=== PATIENT | male | born 1945 | race Caucasian/White ===

== ENCOUNTER 2016-11-29 16:47 | Inpatient (IN) | payer OTHER, MEDICARE ==
[~2016-11-29] VITALS: Ht 177.8 cm; Wt 46.4 kg
[2016-11-29 17:41] LABS: HEMATOCRIT 48.5 % (42.0-52.0); HEMOGLOBIN 17.9 g/dl (13.5-18.0); MEAN CELL VOLUME 85 fl (80.0-100.0); MEAN CORPUSCULAR HEMOGLOBIN 32 pg (27.0-31.0); MEAN CORPUSCULAR HGB CONC 37 g/dl (33.0-37.0); MEAN PLATELET VOLUME 9.6 fl (7.4-10.4); PLATELET COUNT 313 K/mm3 (130-400); RED BLOOD COUNT 5.68 M/mm3 (4.20-5.60); REDCELL DISTRIBUTION WIDTH-CV 13.2 % (11.5-14.5); WHITE BLOOD COUNT 16.4 K/mm3 (4.8-10.8)
[2016-11-29 17:46] LABS: ADD PATHOLOGY DIFF REVIEW NO
[2016-11-29 17:50] LABS: ADJUSTED CALCIUM 9.4 mg/dL (8.4-10.2); ALBUMIN 5.6 gm/dL (3.5-5.0); BILIRUBIN,TOTAL 1.3 mg/dL (0.0-1.0); CALCIUM 10.7 mg/dL (8.4-10.2); CREATININE, serum 2.54 mg/dL (0.66-1.25); POTASSIUM 5.2 mmol/L (3.4-5.0); TOTAL PROTEIN 9.2 gm/dL (6.4-8.2)
[2016-11-29 18:29] LABS: ARTERIAL BLD GAS TCO2 CT 13.1; ARTERIAL BLOOD GAS BASE EXCESS -10.7 (-2-2); ARTERIAL BLOOD GAS HCO3 12.4 meq/L (22-26); ARTERIAL BLOOD GAS PHT 7.35 C (7.35-7.45); ARTERIAL BLOOD GAS PO2 67.2 mmHg (80-100); ARTERIAL BLOOD GAS PO2T 67.2 (80-100); ARTERIAL BLOOD GAS pH 7.35 (7.35-7.45); OXYHEMOGLOBIN 91.4 %
[2016-11-29 18:31] LABS: ALLEN TEST YES; ALLENS TEST RESULT PASS; ATS? YES
[2016-11-29 18:31] LABS: BAND 9 % (0-10); NEUTROPHILS 69 % (42.0-75.2); PLATELET ESTIMATE NORMAL (NORMAL); TOTAL CELLS COUNTED 100
[2016-11-29 21:22] VITALS: BP 126/78; PULSE 90; TEMP 98.5
[2016-11-29 21:45] LABS: MAGNESIUM 2.8 mg/dL (1.6-2.3)
[2016-11-29 23:05] LABS: TROPONIN-I 0.095 ng/mL (0.000-0.034)
[2016-11-30] VITALS (8 sets, daily range): BP systolic 96–147; BP diastolic 59–88; PULSE 72–98; TEMP 97.5–98.9
[2016-11-30 00:17] LABS: HYALINE CAST >12 /lpf; PH 5 (5-8); SQUAMOUS EPITHELIAL 0-2 /hpf; URINE APPEARANCE Hazy; URINE BACTERIA None Seen /hpf; URINE BILIRUBIN Negative (NEGATIVE); URINE BLOOD 1+ (NEGATIVE); URINE COLOR Yellow; URINE GLUCOSE Negative (NEGATIVE); URINE KETONE 1+ (NEGATIVE); URINE RBC 0-2 /hpf; URINE UROBILINOGEN Negative (NEGATIVE)
[2016-11-30 00:23] LABS: AMPHETAMINE URINE NEGATIVE; BARBITURATES URINE NEGATIVE; BENZODIAZEPINES URINE NEGATIVE; BUPRENORPHINE URINE NEGATIVE; METHADONE URINE NEGATIVE; OPIATES URINE NEGATIVE; OXYCODONE URINE NEGATIVE; PHENCYCLIDINE URINE NEGATIVE; PROPOXYPHENE URINE NEGATIVE; THC CANNABINOIDS URINE NEGATIVE
[2016-11-30 10:19] LABS: MEAN CELL VOLUME 87 fl (80.0-100.0); MEAN CORPUSCULAR HGB CONC 36 g/dl (33.0-37.0); MEAN PLATELET VOLUME 9.3 fl (7.4-10.4); PLATELET COUNT 217 K/mm3 (130-400); RED BLOOD COUNT 3.72 M/mm3 (4.20-5.60); REDCELL DISTRIBUTION WIDTH-CV 13.1 % (11.5-14.5); WHITE BLOOD COUNT 10.3 K/mm3 (4.8-10.8)
[2016-11-30 10:24] LABS: CREATININE, serum 1.12 mg/dL (0.66-1.25)
[2016-11-30 10:39] LABS: ADD PATHOLOGY DIFF REVIEW NO; HEMATOCRIT 32.3 % (42.0-52.0); HEMOGLOBIN 11.6 g/dl (13.5-18.0); MEAN CORPUSCULAR HEMOGLOBIN 31 pg (27.0-31.0)
[2016-11-30 11:36] LABS: BAND 20 % (0-10); EOSINOPHIL 1 % (0-4); METAMYELOCYTE 3 % (0-0); NEUTROPHILS 69 % (42.0-75.2); PLATELET ESTIMATE NORMAL (NORMAL); TOTAL CELLS COUNTED 100
[2016-12-01] VITALS (13 sets, daily range): BP systolic 91–114; BP diastolic 51–76; PULSE 36–108; TEMP 97.3–99.9
[2016-12-01 06:34] LABS: BASO # 0.1 (0.0-0.2); BASO % 0.5 % (0.0-2.0); EOS # 0.1 (0.0-0.7); EOS % 0.5 % (0-4.0); GRAN % 83.8 % (42.2-75.2); LYMPH # 0.9 (1.2-3.4); LYMPH % 6.9 % (20.0-51.0); MEAN CELL VOLUME 89 fl (80.0-100.0); MEAN CORPUSCULAR HGB CONC 35 g/dl (33.0-37.0); MEAN PLATELET VOLUME 9.6 fl (7.4-10.4); MONO % 7.8 % (1.7-9.3); PLATELET COUNT 217 K/mm3 (130-400); RED BLOOD COUNT 3.62 M/mm3 (4.20-5.60); REDCELL DISTRIBUTION WIDTH-CV 13.3 % (11.5-14.5); WHITE BLOOD COUNT 13.1 K/mm3 (4.8-10.8)
[2016-12-01 06:38] LABS: HEMATOCRIT 32.2 % (42.0-52.0); HEMOGLOBIN 11.4 g/dl (13.5-18.0); MEAN CORPUSCULAR HEMOGLOBIN 31 pg (27.0-31.0)
[2016-12-01 06:56] LABS: CALCIUM 8.1 mg/dL (8.4-10.2); CREATININE, serum 0.62 mg/dL (0.66-1.25); POTASSIUM 3.2 mmol/L (3.4-5.0)
[2016-12-02] VITALS (9 sets, daily range): BP systolic 95–126; BP diastolic 55–80; PULSE 56–82; TEMP 97.6–98.7
[2016-12-02 06:44] LABS: BASO # 0.1 (0.0-0.2); BASO % 0.6 % (0.0-2.0); EOS # 0.3 (0.0-0.7); EOS % 2.3 % (0-4.0); GRAN % 70.2 % (42.2-75.2); LYMPH # 1.9 (1.2-3.4); LYMPH % 16.5 % (20.0-51.0); MEAN CELL VOLUME 89 fl (80.0-100.0); MEAN CORPUSCULAR HGB CONC 35 g/dl (33.0-37.0); MEAN PLATELET VOLUME 10.2 fl (7.4-10.4); MONO # 1.1 (0.1-0.6); MONO % 9.9 % (1.7-9.3); PLATELET COUNT 226 K/mm3 (130-400); RED BLOOD COUNT 3.27 M/mm3 (4.20-5.60); REDCELL DISTRIBUTION WIDTH-CV 13.4 % (11.5-14.5); WHITE BLOOD COUNT 11.4 K/mm3 (4.8-10.8)
[2016-12-02 06:45] LABS: HEMATOCRIT 29.2 % (42.0-52.0); HEMOGLOBIN 10.2 g/dl (13.5-18.0); MEAN CORPUSCULAR HEMOGLOBIN 31 pg (27.0-31.0)
[2016-12-02 07:12] LABS: CALCIUM 8.1 mg/dL (8.4-10.2); CREATININE, serum 0.5 mg/dL (0.66-1.25); POTASSIUM 3.5 mmol/L (3.4-5.0)
[2016-12-02] MEDS ORDERED: IPRATROPIUM BROM3 M1 IH ×2 (14:11→14:14)
[2016-12-02] MEDS ORDERED: CELEXA 20MG20 MG/TAB PO (14:12)
[2016-12-02] MEDS ORDERED: SINGULAIR 110 MG/TAB PO (14:12)
[2016-12-02] MEDS ORDERED: ULTRAM 50MG TAB50 MG PO (14:12)
[2016-12-02] MEDS ORDERED: FOLIC ACID 11 MG/TA1 PO (14:15)
[2016-12-02] MEDS ORDERED: THIAMINE 1100 MG/TAB PO (14:15)
[2016-12-02] MEDS ORDERED: MULTI VITAMINS1 TAB PO (14:15)
[2016-12-02] MEDS ORDERED: NICODERM C21 MG/PATC TD (14:15)
[2016-12-02] MEDS ORDERED: UNIPHYL 400MG400 MG PO (14:15)
[2016-12-02] MEDS ORDERED: DEEP SEA 45 ML45 ML NS (14:16)
[2016-12-02] MEDS ORDERED: TYLENOL 325MG325 MG PO (14:16)
== END 2016-12-02 18:31 | DRG 922 ==
LOC: COL.ER 16:47 → MEDICAL 19:26
PROVIDERS: Emergency Medicine; Family Medicine
DX: T67.5XXA Heat exhaustion, unspecified, initial encounter (principal); I21.4 Non-ST elevation (NSTEMI) myocardial infarction; E87.1 Hypo-osmolality and hyponatremia; N17.9 Acute kidney failure, unspecified; E86.0 Dehydration; F17.210 Nicotine dependence, cigarettes, uncomplicated; E87.5 Hyperkalemia; E87.6 Hypokalemia; F10.10 Alcohol abuse, uncomplicated; N18.9 Chronic kidney disease, unspecified
CPT/HCPCS: 99232-AI; 99233-AI; 99239; G0378; J1644; J2543; J7030; J7040; J7050

== ENCOUNTER 2016-12-02 15:33 | Inpatient (IN) | payer MEDICARE ==
[~2016-12-02] VITALS: Ht 177.8 cm; Wt 51.3 kg
[~2016-12-02 15:33] MED LIST: CELEXA 20MG20 MG/TAB PO; DEEP SEA 45 ML45 ML NS; FOLIC ACID 11 MG/TA1 PO; IPRATROPIUM BROM3 M1 IH; MULTI VITAMINS1 TAB PO; NICODERM C21 MG/PATC TD; SINGULAIR 110 MG/TAB PO; THIAMINE 1100 MG/TAB PO; TYLENOL 325MG325 MG PO; ULTRAM 50MG TAB50 MG PO; UNIPHYL 400MG400 MG PO
[2016-12-02 18:24] VITALS: BP 125/78; PULSE 73; TEMP 97.5
[2016-12-03 05:05] VITALS: BP 116/69; PULSE 70; TEMP 98.4
[2016-12-03 18:55] VITALS: BP 115/67; PULSE 72; TEMP 97.9
[2016-12-04 04:19] VITALS: BP 122/64; PULSE 73; TEMP 98.1
[2016-12-04 17:06] VITALS: BP 133/83; PULSE 72; TEMP 97.7
[2016-12-05 05:59] VITALS: BP 133/79; PULSE 75; TEMP 98.2
[2016-12-05 06:55] LABS: BASO # 0.1 (0.0-0.2); BASO % 0.6 % (0.0-2.0); EOS # 0.2 (0.0-0.7); EOS % 2.1 % (0-4.0); GRAN # 6.8 (1.4-6.5); GRAN % 66.6 % (42.2-75.2); LYMPH % 19.8 % (20.0-51.0); MEAN CELL VOLUME 90 fl (80.0-100.0); MEAN CORPUSCULAR HGB CONC 34 g/dl (33.0-37.0); MONO % 9.8 % (1.7-9.3); PLATELET COUNT 336 K/mm3 (130-400); RED BLOOD COUNT 3.47 M/mm3 (4.20-5.60); REDCELL DISTRIBUTION WIDTH-CV 13.4 % (11.5-14.5); WHITE BLOOD COUNT 10.2 K/mm3 (4.8-10.8)
[2016-12-05 07:00] LABS: ANION GAP 4 mmol/L (7-16); BLOOD UREA NITROGEN 7 mg/dL (9-20); CALCIUM 8.3 mg/dL (8.4-10.2); CARBON DIOXIDE 29 mmol/L (22-30); CREATININE, serum 0.48 mg/dL (0.66-1.25); GLUCOSE 96 mg/dL (74-106); POTASSIUM 4.5 mmol/L (3.4-5.0)
[2016-12-05 07:01] LABS: HEMATOCRIT 31.3 % (42.0-52.0); HEMOGLOBIN 10.7 g/dl (13.5-18.0); MEAN CORPUSCULAR HEMOGLOBIN 31 pg (27.0-31.0)
[2016-12-05 07:11] LABS: SODIUM 119 mmol/L (137-145)
[2016-12-05 07:12] LABS: CHLORIDE 86 mmol/L (98-107)
[2016-12-05 08:12] LABS: THEOPHYLLINE < 1.0 ug/mL (10.0-20.0)
[2016-12-05 16:26] VITALS: BP 131/93; PULSE 72; TEMP 98.8
[2016-12-05 18:43] LABS: CALCIUM 8.1 mg/dL (8.4-10.2); CREATININE, serum 0.45 mg/dL (0.66-1.25); POTASSIUM 4.6 mmol/L (3.4-5.0)
[2016-12-06 05:47] VITALS: BP 157/97; PULSE 69; TEMP 97.4
[2016-12-06 06:18] LABS: CALCIUM 8.3 mg/dL (8.4-10.2); CREATININE, serum 0.46 mg/dL (0.66-1.25); MAGNESIUM 1.6 mg/dL (1.6-2.3)
[2016-12-06 16:28] VITALS: BP 134/80; PULSE 83; TEMP 98.5
[2016-12-07 06:39] VITALS: BP 131/71; PULSE 70; TEMP 98.5
[2016-12-07 16:53] VITALS: BP 132/75; PULSE 65; TEMP 98.9
[2016-12-08 04:14] VITALS: BP 167/85; BP 172/88; PULSE 76; TEMP 97.9
[2016-12-08 06:47] LABS: CALCIUM 8.9 mg/dL (8.4-10.2); CREATININE, serum 0.44 mg/dL (0.66-1.25); MAGNESIUM 1.5 mg/dL (1.6-2.3); POTASSIUM 4.5 mmol/L (3.4-5.0)
[2016-12-08 16:21] VITALS: BP 117/79; PULSE 64; TEMP 97.9
[2016-12-09 04:44] VITALS: BP 129/83; PULSE 73; TEMP 98.3
[2016-12-09 06:44] LABS: CALCIUM 8.5 mg/dL (8.4-10.2); CREATININE, serum 0.41 mg/dL (0.66-1.25); POTASSIUM 3.9 mmol/L (3.4-5.0)
[2016-12-09 17:28] VITALS: BP 114/71; PULSE 79; TEMP 97.8
[2016-12-10 01:05] LABS: CALCIUM 8.6 mg/dL (8.4-10.2); CREATININE, serum 0.47 mg/dL (0.66-1.25); POTASSIUM 4.2 mmol/L (3.4-5.0)
[2016-12-10 04:38] VITALS: BP 132/76; PULSE 79; TEMP 98.5
[2016-12-10 18:19] VITALS: BP 119/71; PULSE 83; TEMP 97.8
[2016-12-11 04:28] VITALS: BP 136/79; PULSE 75; TEMP 98.2
[2016-12-11 16:27] VITALS: BP 117/64; PULSE 88; TEMP 98.1
[2016-12-12 04:43] VITALS: BP 143/81; PULSE 77; TEMP 98.1
[2016-12-12 06:12] LABS: CALCIUM 8.9 mg/dL (8.4-10.2); CREATININE, serum 0.42 mg/dL (0.66-1.25); MAGNESIUM 1.5 mg/dL (1.6-2.3)
[2016-12-12] MEDS ORDERED: PROAIR HFA0.09 MG/AC IH (11:53)
[2016-12-12] MEDS ORDERED: PEPCID 20MG TAB20 MG PO (11:54)
[2016-12-12] MEDS ORDERED: LASIX 20MG TABL20 MG PO (11:55)
[2016-12-12] MEDS ORDERED: MAG-OX 400400 MG/TAB PO (11:55)
[2016-12-12] MEDS ORDERED: ZOFRAN 4MG T4 MG/TAB PO (11:55)
[2016-12-12] MEDS ORDERED: NORVASC 5MG5 MG/TAB PO (11:56)
[2016-12-12] MEDS ORDERED: THERMOTABS 2871 TA1 PO (12:00)
[2016-12-12] MEDS ORDERED: ULTRAM 50MG TAB50 MG PO (12:01)
== END 2016-12-12 18:55 | disposition home health service (06) | DRG 947 ==
PROVIDERS: Internal Medicine; Internal Medicine Nephrology
PROC: 02HV33Z Insertion of Infusion Device into Superior Vena Cava, Percutaneous Approach (ICD-10-PCS; principal; 2016-12-08)
DX: R53.81 Other malaise (principal); E43 Unspecified severe protein-calorie malnutrition; Z68.1 Body mass index [BMI] 19.9 or less, adult; E87.1 Hypo-osmolality and hyponatremia; T67.5XXD Heat exhaustion, unspecified, subsequent encounter; E86.0 Dehydration; J44.9 Chronic obstructive pulmonary disease, unspecified; F17.210 Nicotine dependence, cigarettes, uncomplicated; F10.10 Alcohol abuse, uncomplicated
CPT/HCPCS: 90791-AI; 99222-AI; 99232-AI; 99233-AI; 99239; C1751; J1644; J1650; J3475; J7040; J7131

== ENCOUNTER → 2016-12-17 | Outpatient (REF) ==
[~2016-12-17] MED LIST changes: +LASIX 20MG TABL20 MG PO; +MAG-OX 400400 MG/TAB PO; +NORVASC 5MG5 MG/TAB PO; +PEPCID 20MG TAB20 MG PO; +PROAIR HFA0.09 MG/AC IH; +THERMOTABS 2871 TA1 PO; +ZOFRAN 4MG T4 MG/TAB PO
== END ==
LOC: ZLAB.WCH 18:01
DX: Z01.89 Encounter for other specified special examinations (principal)

== ENCOUNTER → 2017-01-27 | Outpatient (REF) ==
[2017-01-27 22:53] LABS: PSA-TOTAL 0.45 ng/mL (0-4); THYROID STIMULATING HORMONE 5.55 uIU/mL (0.465-4.680)
== END ==
LOC: ZLAB.WCH 15:51
PROVIDERS: Internal Medicine
DX: Z01.89 Encounter for other specified special examinations (principal)
CPT/HCPCS: G0103

== ENCOUNTER 2017-05-06 14:31 | Observation (INO) | payer MEDICARE ==
[~2017-05-06] VITALS: Ht 180.3 cm; Wt 66.5 kg
[2017-05-06] MEDS ORDERED: PROZAC 10MG10 MG PO (16:36)
[2017-05-06] MEDS ORDERED: RT SPIRIVA18 MCG IH (16:37)
[2017-05-06] MEDS ORDERED: REVATIO20 MG PO (16:37)
[2017-05-06] MEDS ORDERED: 00186-0372-20 IH (16:37)
[2017-05-06] MEDS ORDERED: SYNTHROID0.075 MG/T PO (16:38)
[2017-05-06] MEDS ORDERED: REMERON 15M15 MG/TA1 PO (16:38)
[2017-05-06 16:39] LABS: BASO % 0.3 % (0.0-2.0); EOS # 0.1 (0.0-0.7); EOS % 0.4 % (0-4.0); GRAN # 9.2 (1.4-6.5); GRAN % 76.9 % (42.2-75.2); HEMATOCRIT 48.5 % (42.0-52.0); HEMOGLOBIN 16.5 g/dl (13.5-18.0); LYMPH # 1.7 (1.2-3.4); LYMPH % 14.3 % (20.0-51.0); MEAN CELL VOLUME 88 fl (80.0-100.0); MEAN CORPUSCULAR HEMOGLOBIN 30 pg (27.0-31.0); MEAN CORPUSCULAR HGB CONC 34 g/dl (33.0-37.0); MEAN PLATELET VOLUME 10.2 fl (7.4-10.4); MONO # 0.9 (0.1-0.6); MONO % 7.7 % (1.7-9.3); PLATELET COUNT 292 K/mm3 (130-400); RED BLOOD COUNT 5.51 M/mm3 (4.20-5.60)
[2017-05-06 16:52] LABS: ALBUMIN 5.5 gm/dL (3.5-5.0); BILIRUBIN,TOTAL 0.7 mg/dL (0.0-1.0); C-REACTIVE PROTEIN 1.5 mg/dL (0.0-0.9); CREATININE, serum 0.58 mg/dL (0.66-1.25); MAGNESIUM 1.5 mg/dL (1.6-2.3); PHOSPHOROUS 3.1 mg/dL (2.5-4.5); POTASSIUM 4.3 mmol/L (3.4-5.0)
[2017-05-06 17:45] LABS: ARTERIAL BLD GAS O2 SATURATION 92.8 % (92-100); ARTERIAL BLD GAS TCO2 CT 18.4; ARTERIAL BLOOD GAS BASE EXCESS -7.8 (-2-2); ARTERIAL BLOOD GAS HCO3 17.4 meq/L (22-26); ARTERIAL BLOOD GAS PCO2 34.7 mmHg (35-45); ARTERIAL BLOOD GAS PO2 69.6 mmHg (80-100); ARTERIAL BLOOD GAS pH 7.32 (7.35-7.45)
[2017-05-06 18:38] LABS: COLLECTION METHOD CLEAN CATCH
[2017-05-06 19:11] LABS: PH 6 (5-8); SQUAMOUS EPITHELIAL 0-2 /hpf; URINE APPEARANCE Clear; URINE BACTERIA None Seen /hpf; URINE BILIRUBIN Negative (NEGATIVE); URINE BLOOD Negative (NEGATIVE); URINE COLOR Straw; URINE GLUCOSE Negative (NEGATIVE); URINE KETONE 2+ (NEGATIVE); URINE LEUKOCYTE ESTERASE Negative (NEGATIVE); URINE NITRATE Negative (NEGATIVE); URINE PROTEIN(semi-quant) Negative (NEGATIVE); URINE RBC None Seen /hpf; URINE UROBILINOGEN Negative (NEGATIVE)
[2017-05-06 22:38] VITALS: BP 147/61; PULSE 75; TEMP 98.5
[2017-05-07 05:11] VITALS: BP 129/70; PULSE 74; TEMP 98.1
[2017-05-07 07:28] LABS: BASO % 0.4 % (0.0-2.0); EOS # 0.2 (0.0-0.7); EOS % 1.9 % (0-4.0); GRAN % 62.3 % (42.2-75.2); HEMATOCRIT 38.3 % (42.0-52.0); LYMPH # 1.9 (1.2-3.4); LYMPH % 24.1 % (20.0-51.0); MEAN CELL VOLUME 88 fl (80.0-100.0); MEAN CORPUSCULAR HEMOGLOBIN 30 pg (27.0-31.0); MEAN CORPUSCULAR HGB CONC 34 g/dl (33.0-37.0); MEAN PLATELET VOLUME 10.6 fl (7.4-10.4); MONO # 0.9 (0.1-0.6); MONO % 11.2 % (1.7-9.3); PLATELET COUNT 283 K/mm3 (130-400); RED BLOOD COUNT 4.36 M/mm3 (4.20-5.60); REDCELL DISTRIBUTION WIDTH-CV 13.1 % (11.5-14.5)
[2017-05-07 07:48] LABS: HEMOGLOBIN 12.9 g/dl (13.5-18.0)
[2017-05-07 07:52] LABS: CALCIUM 8.6 mg/dL (8.4-10.2); CREATININE, serum 0.53 mg/dL (0.66-1.25); MAGNESIUM 1.6 mg/dL (1.6-2.3)
[2017-05-07 08:09] VITALS: BP 147/72; PULSE 76; TEMP 97.8
[2017-05-07 08:13] LABS: THYROID STIMULATING HORMONE 1.16 uIU/mL (0.465-4.680)
[2017-05-07 11:43] VITALS: BP 118/62; PULSE 79; TEMP 98
[2017-05-07] MEDS ORDERED: MIRALAX PA17 GM/Dose PO (15:00)
[2017-05-07] MEDS ORDERED: ZOFRAN ODT4 MG PO (15:02)
[2017-05-07 16:06] VITALS: BP 101/56; PULSE 80; TEMP 98.7
[2017-05-07 20:41] VITALS: BP 112/66; PULSE 82; TEMP 98.8
[2017-05-08 00:08] VITALS: BP 108/59; PULSE 74; TEMP 98.1
[2017-05-08 04:01] VITALS: BP 143/66; PULSE 69; TEMP 98.6
[2017-05-08 06:39] LABS: BASO % 0.4 % (0.0-2.0); EOS # 0.2 (0.0-0.7); GRAN # 5.2 (1.4-6.5); GRAN % 62.3 % (42.2-75.2); HEMATOCRIT 38.2 % (42.0-52.0); HEMOGLOBIN 12.7 g/dl (13.5-18.0); LYMPH % 23.3 % (20.0-51.0); MEAN CELL VOLUME 89 fl (80.0-100.0); MEAN CORPUSCULAR HEMOGLOBIN 30 pg (27.0-31.0); MEAN CORPUSCULAR HGB CONC 33 g/dl (33.0-37.0); MEAN PLATELET VOLUME 10.3 fl (7.4-10.4); MONO % 11.6 % (1.7-9.3); PLATELET COUNT 300 K/mm3 (130-400); RED BLOOD COUNT 4.29 M/mm3 (4.20-5.60); REDCELL DISTRIBUTION WIDTH-CV 13.4 % (11.5-14.5)
[2017-05-08 06:55] LABS: CREATININE, serum 0.64 mg/dL (0.66-1.25)
[2017-05-08 08:08] VITALS: BP 122/76; PULSE 81; TEMP 97.6
[2017-05-08 15:09] VITALS: BP 131/66; PULSE 81; TEMP 97.6
== END 2017-05-08 18:45 | disposition home or self-care (01) ==
LOC: COL.ER 14:31 → MEDICAL 19:52
PROVIDERS: Emergency Medicine; Family Medicine; Physician Assistant
DX: R11.2 Nausea with vomiting, unspecified (principal); K59.00 Constipation, unspecified; R53.1 Weakness; E87.1 Hypo-osmolality and hyponatremia; I10 Essential (primary) hypertension; J44.9 Chronic obstructive pulmonary disease, unspecified; K57.90 Diverticulosis of intestine, part unspecified, without perforation or abscess without bleeding; F17.210 Nicotine dependence, cigarettes, uncomplicated; E46 Unspecified protein-calorie malnutrition; Z68.1 Body mass index [BMI] 19.9 or less, adult
CPT/HCPCS: 99222-AI; 99238; G0378; G8978-GP; G8979-GP; G8987-GO; G8988-GO; J2405; J3475; J7030; J7042; J7050; Q9967

== ENCOUNTER → 2017-07-27 | Outpatient (REF) ==
[~2017-07-27] MED LIST changes: +00186-0372-20 IH; +MIRALAX PA17 GM/Dose PO; +PROZAC 10MG10 MG PO; +REMERON 15M15 MG/TA1 PO; +REVATIO20 MG PO; +RT SPIRIVA18 MCG IH; +SYNTHROID0.075 MG/T PO; +ZOFRAN ODT4 MG PO
== END ==
LOC: ZLAB.WCH 18:06
DX: Z01.89 Encounter for other specified special examinations (principal)

== ENCOUNTER → 2018-07-09 | Outpatient (REF) ==
[2018-07-09 22:37] LABS: PSA-TOTAL 0.73 ng/mL (0-4)
[2018-07-09 22:43] LABS: THYROID STIMULATING HORMONE 0.747 uIU/mL (0.465-4.680)
== END ==
LOC: ZLAB.WCH 21:48
PROVIDERS: Internal Medicine
DX: Z01.89 Encounter for other specified special examinations (principal)
CPT/HCPCS: G0103

== ENCOUNTER → 2018-07-14 | Outpatient (REF) | LOC: ZLAB.WCH 14:05 | DX: Z01.89 Encounter for other specified special examinations (principal) ==